=== PATIENT | female | born 1985 | race Caucasian/White ===

== ENCOUNTER 2017-07-02 20:07 | Emergency (ER) | payer OTHER ==
[~2017-07-02] VITALS: Ht 170.2 cm; Wt 133.4 kg
[~2017-07-02 20:07] MED LIST: CYMB30CA PO; FIORINAL2 PO; VIST25CA PO
[2017-07-02 20:09] VITALS: BP 147/82; PULSE 124; RESP 20; TEMP 98.9; O2SAT 96
[2017-07-02] MEDS ORDERED: CELE40TA PO (20:14)
[2017-07-02] MEDS ORDERED: SODIUM CHLOR 0.9% 1000 ML INJ 1,000 ML IV SCH (20:23)
--- NOTE | 2017-07-02 20:28 | PD ---
HPI Chief Complaint: GI Complaint Time Seen by Provider: 20:22 Travel History International Travel<30 days: No Contact w/Intl Traveler<30days: No Traveled to known affect area: No History of Present Illness HPI Patient is a 31-year-old female who presents to emergency room with complaints of nausea, vomiting and diarrhea. Patient reports that she woke up this morning and was not feeling well, reports that she was sent home from work around 9 AM she had multiple episodes of nausea, vomiting and diarrhea. Patient reports that her significant other was sick recently with similar symptoms. Reports that she is currently recovering from bronchitis. Patient reports no recent travels or trips, no fever or chills. Patient reports that she has diffuse abdominal cramping from vomiting and having diarrhea all day. Patient denies any dysuria, urinary urgency or frequency, patient with no other complaints at this time. PFSH Past Medical History Anxiety: Yes Depression: Yes Tetanus Vaccination: Unknown Influenza Vaccination: No ?: Not LMP: 06/25/17 Past Surgical History Surgical History: No Previous Surgery Social History Alcohol Use: No Tobacco Use: Yes (1 PPD) Substance Use: No Allergies-Medications (Allergen,Severity, Reaction): Coded Allergies: clarithromycin (Unverified Allergy, Intermediate, Hives, 07/02/17) Reported Meds & Prescriptions Reported Meds & Active Scripts Active Zofran (Ondansetron HCl) 4 Mg Tab 4 Mg PO Q6HR PRN Reported Celexa (Citalopram Hydrobromide) 40 Mg Tab 40 Mg PO DAILY Review of Systems General / Constitutional: No: Fever Eyes: No: Visual changes HENT: No: Headaches Cardiovascular: No: Chest Pain or Discomfort Respiratory: No: Shortness of Breath Gastrointestinal: Positive: Nausea, Vomiting, Diarrhea, No: Abdominal Pain Genitourinary: No: Dysuria Musculoskeletal: No: Pain Skin: No Rash Neurologic: No: Weakness Psychiatric: No: Depression Endocrine: No: Polydipsia Hematologic/Lymphatic: No: Easy Bruising Physical Exam Narrative GENERAL: moderate distress SKIN: Focused skin assessment warm/dry. HEAD: Atraumatic. Normocephalic. EYES: Pupils equal and round. No scleral icterus. No injection or drainage. ENT: No nasal bleeding or discharge. Mucous membranes pink and moist. NECK: Trachea midline. No JVD. CARDIOVASCULAR: Mildly tachycardic. No murmur appreciated. RESPIRATORY: No accessory muscle use. Clear to auscultation. Breath sounds equal bilaterally. GASTROINTESTINAL: Abdomen soft, non-tender, nondistended. Hepatic and splenic margins not palpable. MUSCULOSKELETAL: No obvious deformities. No clubbing. No cyanosis. No edema. NEUROLOGICAL: Awake and alert. No obvious cranial nerve deficits. Motor grossly within normal limits. Normal speech. PSYCHIATRIC: Appropriate mood and affect; insight and judgment normal. Data Data Last Documented VS Vital Signs Date Time Temp Pulse Resp B/P (MAP) Pulse Ox O2 Delivery O2 Flow Rate FiO2 07/02/17 20:54 112 18 106/70 (82) 97 Room Air 07/02/17 20:09 98.9 Orders Orders Complete Blood Count With Diff (07/02/17 20:23) Comprehensive Metabolic Panel (07/02/17 20:23) Lipase (07/02/17 20:23) Urinalysis - C+S If Indicated (07/02/17 20:23) Iv Access Insert/Monitor (07/02/17 20:23) Ondansetron Inj (Zofran Inj) (07/02/17 20:30) Sodium Chlor 0.9% 1000 Ml Inj (Ns 1000 M (07/02/17 20:23) Sodium Chloride 0.9% Flush (Ns Flush) (07/02/17 20:30) Famotidine Inj (Pepcid Inj) (07/02/17 20:30) Ed Urine Pregnancytest Poc (07/02/17 20:23) Sodium Chlor 0.9% 1000 Ml Inj (Ns 1000 M (07/02/17 20:30) Influenzae A/B Antigen (07/02/17 20:24) Labs Laboratory Tests Test 07/02/17 20:35 07/02/17 20:40 White Blood Count 14.7 TH/MM3 Red Blood Count 5.24 MIL/MM3 Hemoglobin 14.1 GM/DL Hematocrit 43.0 % Mean Corpuscular Volume 82.0 FL Mean Corpuscular Hemoglobin 26.9 PG Mean Corpuscular Hemoglobin Concent 32.8 % Red Cell Distribution Width 13.1 % Platelet Count 352 TH/MM3 Mean Platelet Volume 8.1 FL Neutrophils (%) (Auto) 89.6 % Lymphocytes (%) (Auto) 3.9 % Monocytes (%) (Auto) 4.5 % Eosinophils (%) (Auto) 0.5 % Basophils (%) (Auto) 1.5 % Neutrophils # (Auto) 13.1 TH/MM3 Lymphocytes # (Auto) 0.6 TH/MM3 Monocytes # (Auto) 0.7 TH/MM3 Eosinophils # (Auto) 0.1 TH/MM3 Basophils # (Auto) 0.2 TH/MM3 CBC Comment DIFF FINAL Differential Comment Blood Urea Nitrogen 19 MG/DL Creatinine 0.78 MG/DL Random Glucose 147 MG/DL Total Protein 7.6 GM/DL Albumin 3.1 GM/DL Calcium Level 8.4 MG/DL Alkaline Phosphatase 81 U/L Aspartate Amino Transf (AST/SGOT) 10 U/L Alanine Aminotransferase (ALT/SGPT) 28 U/L Total Bilirubin 0.6 MG/DL Sodium Level 136 MEQ/L Potassium Level 3.8 MEQ/L Chloride Level 105 MEQ/L Carbon Dioxide Level 21.1 MEQ/L Anion Gap 10 MEQ/L Estimat Glomerular Filtration Rate 87 ML/MIN Lipase 126 U/L Urine Color YELLOW Urine Turbidity CLOUDY Urine pH 5.5 Urine Specific Fowler 1.031 Urine Protein TRACE mg/dL Urine Glucose (UA) NEG mg/dL Urine Ketones NEG mg/dL Urine Occult Blood TRACE Urine Nitrite NEG Urine Bilirubin NEG Urine Leukocyte Esterase NEG Urine RBC 0-3 /hpf Urine WBC 3-5 /hpf Urine Squamous Epithelial Cells 0-5 /hpf Urine Amorphous Sediment MOD Urine Mucus FEW /lpf Microscopic Urinalysis Comment CULT NOT INDICATED MDM Medical Decision Making Medical Screen Exam Complete: Yes Emergency Medical Condition: Yes Medical Record Reviewed: Yes Interpretation(s) Vital Signs Date Time Temp Pulse Resp B/P (MAP) Pulse Ox O2 Delivery O2 Flow Rate FiO2 07/02/17 20:09 98.9 124 20 147/82 (103) 96 Differential Diagnosis Gastritis, gastroenteritis, viral syndrome, electrolyte abnormality Narrative Course 31-year-old female who presents to emergency room with complaints of nausea, vomiting and diarrhea since this morning. Patient reports that her significant other was sick with similar symptoms prior to the onset of her her symptoms. Patient reports that she is having crampy abdominal pain due to her GI symptoms at this time. During the course of the patients emergency department visit, the patients history, examination, and differential diagnosis were reviewed with the patient. The patient was placed on a maintenance repairman with oximetry and frequent blood pressure monitoring. The patient had a 20-gauge IV access obtained and blood work sent for analysis. The patient was initially provided IV fluids, IV Zofran as well as IV Pepcid. The patients laboratory studies were reviewed and remarkable for: CBC & BMP Diagram 07/02/17 20:35 Total Protein 7.6, Albumin 3.1 L, Calcium Level 8.4 L, Alkaline Phosphatase 81, Aspartate Amino Transf (AST/SGOT) 10 L, Alanine Aminotransferase (ALT/SGPT) 28, Total Bilirubin 0.6 Patient reevaluated, patient reports that she is feeling much better at this time. Abdomen soft, nontender, nondistended, no peritoneal signs. Patient reports that she is able to take sips of Gatorade this time. I did review all labs and all studies with patient in detail, discussed the for bland diet as well as for increased fluid intake. Patient will follow-up with her primary care doctor and will return to the ER as needed. 954pm: patient re-evaluated, reports "i feel so much better, thank you so much. " I reviewed discharge paper instructions with patient. She will return to ER as needed and follow up with her PCP as outpatient. Diagnosis Primary Impression: Nausea vomiting and diarrhea Patient Instructions: General Instructions Departure Forms: Tests/Procedures, Work Release Enter return to work date: Jul 07, 2017 Additional Instructions: Please follow up with your primary care doctor in 2-3 days Return to the ER if symptoms worsen or progress Return to the ER as needed Please drink plenty of fluids Med/Other Pt SpecificInfo: Prescription(s) given Scripts Ondansetron (Zofran) 4 Mg Tab 4 MG PO Q6HR Y for NAUSEA OR VOMITING, #20 TAB 0 Refills Prov: Ghislaine Martinez DO 07/02/17 Disposition: 01 DISCHARGE HOME Condition: Stable Ghislaine Martinez DO Jul 02, 2017 20:28
[2017-07-02] MEDS ORDERED: SODIUM CHLOR 0.9% 1000 ML INJ 1,000 ML IV ONE (20:30)
[2017-07-02] MEDS ORDERED: ONDANSETRON HCL 4 MG/2 ML VIAL IVP ONE (20:30)
[2017-07-02] MEDS ORDERED: SODIUM CHLORIDE 0.9% FLUSH 10 ML FLUSH IV FLUSH PRN (20:30)
[2017-07-02] MEDS ORDERED: FAMOTIDINE 20 MG/2 ML VIAL IV PUSH ONE (20:30)
[2017-07-02 20:44] LABS: AUTOMATED NEUTROPHIL # 13.1 TH/MM3 (1.8-7.7); BASOPHIL # 0.2 TH/MM3 (0-0.2); BASOPHIL % 1.5 % (0.0-2.0); EOSINOPHIL # 0.1 TH/MM3 (0-0.4); EOSINOPHIL % 0.5 % (0.0-4.0); LYMPH % 3.9 % (9.0-44.0); LYMPHOCYTE # 0.6 TH/MM3 (1.0-4.8); MEAN CORPUSCULAR HEMOGLOBIN 26.9 PG (27.0-34.0); MEAN CORPUSCULAR HGB CONC 32.8 % (32.0-36.0); MONO % 4.5 % (0.0-8.0); NEUT % 89.6 % (16.0-70.0); PLATELET COUNT 352 TH/MM3 (150-450); RED BLOOD COUNT 5.24 MIL/MM3 (4.00-5.30); RED CELL DISTRIBUTION WIDTH 13.1 % (11.6-17.2); WHITE BLOOD COUNT 14.7 TH/MM3 (4.0-11.0)
[2017-07-02 20:49] LABS: CHLORIDE 105 MEQ/L (98-107); HEMO FLAGS DIFF FINAL; POTASSIUM 3.8 MEQ/L (3.5-5.1); SODIUM (NA) 136 MEQ/L (136-145)
[2017-07-02 20:53] LABS: ANION GAP 10 MEQ/L (5-15); BICARBONATE 21.1 MEQ/L (21.0-32.0); BLOOD UREA NITROGEN 19 MG/DL (7-18)
[2017-07-02 20:54] VITALS: BP 106/70; PULSE 112; RESP 18; O2SAT 97
[2017-07-02 20:56] LABS: ALT (GPT) 28 U/L (10-53); AST (GOT) 10 U/L (15-37); GLOMERULAR FILTRATION RATE 87 ML/MIN (>89)
[2017-07-02 20:57] LABS: TOTAL BILIRUBIN ADULT 0.6 MG/DL (0.2-1.0)
[2017-07-02 20:59] LABS: ALKALINE PHOSPHATASE 81 U/L (45-117)
[2017-07-02 21:00] LABS: BLOOD, URINE TRACE (NEG); GLUCOSE,URINE NEG (NEG); KETONE, URINE NEG (NEG); NITRITE,URINE NEG (NEG); PH, URINE 5.5 (5.0-8.5)
[2017-07-02 21:09] LABS: URINE COLOR YELLOW (YELLW/STRAW)
[2017-07-02 21:10] LABS: COMMENT (UR) CULT NOT INDICATED; CULTURE IF INDICATED CULT NOT INDICATED; MUCUS URINE FEW /lpf (OCC); RBC, URINE 0-3 /hpf (0-3); SQUAMOUS EPITHELIAL CELL URINE 0-5 /hpf (0-5)
[2017-07-02] MEDS ORDERED: ZOFR4TAB PO (21:16)
[2017-07-02 21:54] VITALS: BP 119/72
== END 2017-07-02 22:04 | disposition home or self-care (01) ==
LOC: PHED 20:07
DX: R11.2 Nausea with vomiting, unspecified (principal); R19.7 Diarrhea, unspecified; R10.9 Unspecified abdominal pain; F17.200 Nicotine dependence, unspecified, uncomplicated
CPT/HCPCS: 80053; 81001; 83690; 84703; 85025; 87804; 96361; 96374; 96375; 99284; J2405; J7030